=== PATIENT | female | born 1980 | race Caucasian/White ===

== ENCOUNTER 2019-12-29 18:16 | Emergency (ER) | payer BC, SELFPAY ==
--- NOTE | ~2019-12-29 | CT_ITS ---
CT soft tissue neck w con DATE: 12/29/2019 19:14 INDICATION: Sore throat, difficulty swallowing TECHNIQUE: Axial images and sagittal and coronal reconstructions through the neck following administr ation of 75 cc Omnipaque 350 contrast material Exam dose: 495.04 mGy-cm total exam DLP. COMPARISON: None FINDINGS: The parotid and submandibular glands are normal in appearance. The thyroid gland is unremarkable. No cervical mass lesion or lymphadenopathy. No superior mediastinal mass lesion or lymphadenopathy. Air column is patent. IMPRESSION: No cervical mass lesion or lymphadenopathy Reviewed, dictated and finalized at [facility]. Reviewed, dictated and finalized at [facility].
[2019-12-29 18:20] VITALS: BP 139/84; PULSE 103; RESP 18; TEMP 36.3; O2SAT 99
[2019-12-29 18:28] VITALS: BP 138/80; PULSE 172; RESP 17; O2SAT 98
--- NOTE | 2019-12-29 18:28 | ECG_ITS ---
Measurements Intervals [place] Rate: 169 P: PA: 0 QRS: 113 QRSD: 101 T: 62 QT: 289 QTc: 486 Interpretive Statements SINUS TACHYCARDIA BORDERLINE R WAVE PROGRESSION, ANTERIOR LEADS BASELINE ARTIFACT- I, III, AVR ABNORMAL ECG Electronically Signed On 12-30-2019 6:49:22 CDT by Rip Harvey D.O.
[2019-12-29 18:29] VITALS: PULSE 171
--- NOTE | 2019-12-29 18:37 | ED.GENADULT ---
HPI - General Adult General Chief complaint: Unspecified Stated complaint: amanda maza, being treated for strep Time Seen by Provider: 12/29/19 18:20 Source: patient History of Present Illness HPI narrative: Patient is a 39 y/o female complaining of left sided sore throat for 3 weeks. She states that sore throat is mild and there is no alleviating or exacerbating factor. She denies any fever. She has some chronic cough and running nose, which she attributed to allergies. She was seen at urgent care 1 week ago and strep test was negative. She received Rx for Amoxicillin 5 days from her PCP. Related Data Allergies Allergy/AdvReac Type Severity Reaction Status Date / Time No Known Allergies Allergy Unverified 04/09/18 10:50 Review of Systems Constitutional: Constitutional: Denies chills, Denies fever(s), Denies headache(s) and Denies weakness Eyes: Eyes: Denies blurry vision ENT: Denies headache(s), Denies neck pain and Reports sore throat Cardiovascular: Cardiovascular: Denies chest pain and Denies dyspnea Respiratory: Respiratory: Denies cough and Denies dyspnea Gastrointestinal: Gastrointestinal: Denies abdominal pain, Denies diarrhea, Denies nausea and Denies vomiting Genitourinary: Genitourinary: Denies hematuria and Denies dysuria Musculoskeletal: Musculoskeletal: Denies back pain and Denies neck pain Neurologic: Denies headache(s) and Denies weakness PMFSH Family History Family History Father Family history of malignant melanoma Other Cerebrovascular accident Diabetes mellitus Family history of allergic disorder Family history of cardiovascular disease Family history of kidney disease Hypertension Social History Social History Smoking status: Never smoker Alcohol intake: current Exam Const: General: no acute distress and well developed Orientation/consciousness: oriented to person, oriented to place, oriented to time and patient oriented x3 HENMT: Head: normocephalic Ears: external ears normal General nose exam: Normal external nose present Eyes: General: appearance normal, both eyes and all related structures Conjunctivae: conjunctivae normal Neck: Neck: normal visual inspection and full ROM Chest: Chest palpation & inspection: normal inspection of the chest and no tenderness Resp: Effort & Inspection: normal respiratory effort Auscultation: clear to auscultation bilaterally Cardio: Rate: tachycardic Rhythm: regular rhythm GI: GI Palp: No abdominal tenderness and Yes Soft to palpation Skin: General skin exam: normal color and turgor normal Neuro: General: oriented to person, oriented to place, oriented to time and patient oriented x3 Cognition (Neuro): normal cognition Extrem: General: normal to inspection, full ROM and no pedal edema Psych: Appearance: grossly normal Mental Status: mental status grossly normal Affect: normal affect Course Vital Signs Vital signs: Vital Signs Temperature 36.3 C L 12/29/19 18:20 Pulse Rate 103 H 12/29/19 18:20 Respiratory Rate 18 12/29/19 18:20 Blood Pressure 139/84 12/29/19 18:20 Pulse Oximetry 99 12/29/19 18:20 Temperature 36.7 C 12/29/19 22:00 Pulse Rate 99 12/29/19 22:00 Respiratory Rate 18 12/29/19 22:00 Blood Pressure 134/82 12/29/19 22:00 Pulse Oximetry 100 12/29/19 22:00 Medical Decision Making Vital Signs Vital Signs: Vital Signs Temperature 36.3 C L 12/29/19 18:20 Pulse Rate 103 H 12/29/19 18:20 Respiratory Rate 18 12/29/19 18:20 Blood Pressure 139/84 12/29/19 18:20 Pulse Oximetry 99 12/29/19 18:20 Temperature 36.7 C 12/29/19 22:00 Pulse Rate 99 12/29/19 22:00 Respiratory Rate 18 12/29/19 22:00 Blood Pressure 134/82 12/29/19 22:00 Pulse Oximetry 100 12/29/19 22:00 Lab Data Result diagrams: 12/29/19 18:35
[2019-12-29 18:41] VITALS: BP 121/83; PULSE 121; RESP 26; O2SAT 99
[2019-12-29 18:42] LABS: Basophils Absolute Auto 0.1 K/mm3 (0.0-0.1); Basophils Percent Auto 0.5 % (0.2-1.2); Eosinophils Percent Auto 0.1 % (0-4.4); Hematocrit 41.4 % (37.0-47.0); Hemoglobin 13.7 g/dL (12.0-15.0); Immature Granulocyte Absolute 0.07 K/mm3 (0.00-0.031); Immature Granulocyte Percent A 0.4 % (0-0.5); Lymphocytes Absolute Auto 2.58 K/mm3 (0.9-3.2); Lymphocytes Percent Auto 16.1 % (18.3-44.2); Mean Corpuscular HGB Conc 33.1 g/dl (32-36); Mean Corpuscular Hemoglobin 28.1 pg (26-34); Mean Corpuscular Volume 84.8 fl (80-100); Mean Platelet Volume 12.1 fl (7.4-10.4); Monocytes Absolute Auto 0.5 K/mm3 (0.1-0.6); Monocytes Percent Auto 2.9 % (2.6-8.5); Neutrophils Absolute Auto 12.9 K/mm3 (1.3-6.7); Platelet Count Result 268 k/mm3 (150-375); Red Blood Count 4.88 M/mm3 (4.2-5.4); Red Cell Distribution Width 14.7 % (11.5-14.5); White Blood Count 16.1 K/mm3 (4.5-10.0)
[2019-12-29 18:56] LABS: Anion Gap 12 mmol/L (8-16); Blood Urea Nitrogen 9 mg/dL (7-17); Calcium 9.9 mg/dL (8.4-10.2); Carbon Dioxide 26 mmol/L (22-30); Chloride 102 mmol/L (98-107); Estimated CRCL calculation 100 ml/min; Estimated Glomerular Filt Rate > 60; Glucose 140 mg/dL (65-105); Potassium 2.9 mmol/L (3.4-5.0); Sodium 140 mmol/L (137-145)
[2019-12-29 19:16] LABS: Monoscreen Negative (Negative); Negative Monotest Control Negative (Negative); Positive Monotest Control Positive (Positive)
[2019-12-29] MEDS: POTASSIUM CHLORIDE 20 MEQ TABLET 40 MEQ PO (19:35)
[2019-12-29 19:42] VITALS: BP 128/84; PULSE 110; RESP 20; O2SAT 100
--- NOTE | 2019-12-29 19:59 | ECG_ITS ---
Measurements Intervals [place] Rate: 141 P: 67 AL: 134 QRS: 119 QRSD: 100 T: 43 QT: 354 QTc: 544 Interpretive Statements SINUS TACHYCARDIA RIGHT AXIS DEVIATION BORDERLINE R WAVE PROGRESSION, ANTERIOR LEADS CONSIDER ANTEROLATERAL INFARCT, AGE INDETERMINATE BORDERLINE T WAVE ABNORMALITY- INFERIOR LEADS ABNORMAL ECG Electronically Signed On 12-30-2019 6:53:46 CDT by Rip Harvey D.O.
[2019-12-29 20:21] LABS: Add Urine Microscopic? YES; Appearance Urine Clear (Clear); Bilirubin Urine Negative (Negative); Blood Urine Negative (Negative); Color Urine Yellow (Yellow); Glucose Urine UA Negative (Negative); Ketones Urine Negative (Negative); Leukocyte Esterase Ur Negative LEU/UL (Negative); Nitrate Urine Negative (Negative); Protein Urine Negative (Negative); Squamous Epithelial Cell Urine Many /hpf (Few); Urobilinogen Urine Negative mg/dL (<2.0); WBC Urine 0-3 /hpf
[2019-12-29] MEDS: SODIUM CHLORIDE 0.9% IV 1,000 ML 999 ML IV CONT (20:23)
[2019-12-29 20:31] LABS: Specific Grav Ur 1.059 (1.001-1.035)
[2019-12-29] MEDS: LIDOCAINE HCL 2% VISC SOLN 15 ML UDC PO (21:07)
[2019-12-29] MEDS: KETOROLAC (*BKC) 60 MG/2 ML VIAL IM (21:07)
[2019-12-29 22:00] VITALS: BP 134/82; PULSE 99; RESP 18; TEMP 36.7; O2SAT 100
== END 2019-12-29 22:01 | disposition home or self-care (01) ==
PROVIDERS: Emergency Provider Emergency Medicine
DX: J02.9 Acute pharyngitis, unspecified (principal); E87.6 Hypokalemia; R94.31 Abnormal electrocardiogram [ECG] [EKG]; R00.0 Tachycardia, unspecified
CPT/HCPCS: 36415; 70491; 80048; 81001; 81025; 84443; 85025; 86308; 87081; 87880; 93005; 96360; 96372; 99284; A9270; J1885; J7030; Q9967

== ENCOUNTER 2020-07-05 19:21 | Observation (INO) | payer BC, SELFPAY ==
--- NOTE | ~2020-07-05 | CT_ITS ---
EXAMINATION: CT abdomen pelvis w con DATE: 07/05/2020 20:51 INDICATION: Right upper quadrant abdominal pain TECHNIQUE: Computed tomography (CT) of the abdomen and pelvis was performed with 100 cc Omnipaque 350 intravenous contrast. Automated exposure control and iterative reconstruction technique were employe d. Exam dose: 527.50 mGy-cm total exam DLP. COMPARISON: 10/15/2014 CT abdomen pelvis FINDINGS: The lung bases are clear. Normal heart size. No pericardial or pleural effusion. Approximately 3 x 10 mm calcification along the posterior aspect of the proximal gallbladder, likely due to cholelithiasis. Focal gallbladder wall thickening is considered less likely. Consider gallblad darcy ultrasound correlation. No gallbladder wall thickening or pericholecystic fluid or fat stranding is noted otherwise. There is no bile duct or pancreatic duct dilatation. No hepatic, splenic, pancreatic, and adrenal or renal space-occupying mass lesion is detected. No uri nary tract calculus or hydroureteronephrosis. 2.7 cm and 3.9 cm right ovarian cysts. The left ovary is unremarkable. Retroverted uterus; fluid is noted in the endometrial cavity, measuring up to 11.5 mm maximal AP dime nsion. Normal appendix. There are numerous diverticula of the sigmoid and descending and to a lesser extent transverse colon; no CT evidence of diverticulitis. No bowel obstruction, bowel wall thickening, pneu matosis or intraperitoneal free air is evident. Normal caliber of the abdominal aorta. No intraperitoneal or retroperitoneal or pelvic mass lesion or adenopathy or ascites is noted otherwise. Included skeletal structures are unremarkable. IMPRESSION: Gallstone versus less likely gallbladder wall calcification; consider gallbladder sonogr aphic correlation 2.7 cm and 3.9 cm right ovarian cysts Retroverted uterus with fluid in endometrial cavity measuring up to 11.5 mm AP dimension Diverticulosis of the colon; no CT evidence for diverticulitis Reviewed, dictated and finalized at [facility]. Reviewed, dictated and finalized at [facility]. IMPRESSION: Gallstone versus less likely gallbladder wall calcification; consi darcy gallbladder sonographic correlation 2.7 cm and 3.9 cm right ovarian cysts Retroverted uterus with fluid in endometrial cavity measuring up to 11.5 mm AP dimension Diverticulosis of the colon; no CT evidence for diverticulitis
--- NOTE | ~2020-07-05 | US_ITS ---
EXAMINATION: US abdomen limited DATE: 07/06/2020 11:35 INDICATION: Abdominal pain. TECHNIQUE: Multiple grayscale and Doppler ultrasound images of the abdomen were obtained. COMPARISON: CT abdomen and pelvis 07/05/2020 FINDINGS: The visualized portions of the head, body, and tail of the pancreas are normal. There is di ffuse hepatic steatosis. There is normal flow in main portal vein. The gallbladder is normal in size and contains gallstones. Gallbladder wall thickening is noted. There was a positive sonographic Fide y sign. The common duct is normal and measures 4 mm. IMPRESSION: 1. Acute cholecystitis. 2. Diffuse hepatic steatosis. Reviewed, dictated and finalized at [facility].
[2020-07-05 19:32] VITALS: BP 119/79; PULSE 125; RESP 20; TEMP 36.2; O2SAT 100
[2020-07-05 19:55] LABS: Basophils Absolute Auto 0.1 K/mm3 (0.0-0.1); Basophils Percent Auto 0.9 % (0.2-1.2); Eosinophils Absolute Auto 0.2 K/mm3 (0-0.3); Eosinophils Percent Auto 1.7 % (0-4.4); Hematocrit 40.2 % (37.0-47.0); Hemoglobin 13.1 g/dL (12.0-15.0); Immature Granulocyte Absolute 0.04 K/mm3 (0.00-0.031); Immature Granulocyte Percent A 0.5 % (0-0.5); Lymphocytes Absolute Auto 2.24 K/mm3 (0.9-3.2); Lymphocytes Percent Auto 26.1 % (18.3-44.2); Mean Corpuscular HGB Conc 32.6 g/dl (32-36); Mean Corpuscular Hemoglobin 27.7 pg (26-34); Mean Platelet Volume 11.3 fl (7.4-10.4); Monocytes Absolute Auto 0.8 K/mm3 (0.1-0.6); Monocytes Percent Auto 9.7 % (2.6-8.5); Neutrophils Absolute Auto 5.2 K/mm3 (1.3-6.7); Neutrophils Percent Auto 61.1 % (45.5-73.1); Platelet Count Result 215 k/mm3 (150-375); Red Blood Count 4.73 M/mm3 (4.2-5.4); Red Cell Distribution Width 14.6 % (11.5-14.5); White Blood Count 8.6 K/mm3 (4.5-10.0)
[2020-07-05 20:01] LABS: Add Urine Microscopic? YES; Appearance Urine Clear (Clear); Bilirubin Urine Negative (Negative); Blood Urine 1+ (Negative); Color Urine Yellow (Yellow); Glucose Urine UA Negative (Negative); Ketones Urine Negative (Negative); Leukocyte Esterase Ur Negative LEU/UL (Negative); Mucus Urine Rare /lpf; Nitrate Urine Negative (Negative); Protein Urine Negative (Negative); RBC Urine 0-2 /hpf (0-2); Specific Grav Ur 1.012 (1.001-1.035); Squamous Epithelial Cell Urine Few /hpf (Few); Urobilinogen Urine Negative mg/dL (<2.0); WBC Urine 0-3 /hpf
[2020-07-05] MEDS: SODIUM CHLORIDE 0.9% IV 1,000 ML 999 ML IV CONT (20:14)
[2020-07-05] MEDS: KETOROLAC 30 MG/ML VIAL (*BKC) IV PUSH (20:15)
[2020-07-05 20:18] LABS: Alanine Aminotransferase 29 U/L (4-35); Albumin Level 4.7 g/dL (3.5-5.1); Alkaline Phosphatase 64 U/L (38-126); Anion Gap 9 mmol/L (8-16); Aspartate Amino Transferase 37 U/L (14-36); Bilirubin,Total 0.2 mg/dL (0.2-1.3); Blood Urea Nitrogen 7 mg/dL (7-17); Calcium 9.3 mg/dL (8.4-10.2); Carbon Dioxide 25 mmol/L (22-30); Chloride 103 mmol/L (98-107); Estimated CRCL calculation 96 ml/min; Estimated Glomerular Filt Rate > 60; Glucose 134 mg/dL (65-105); Lipase 118 U/L (23-300); Potassium 2.8 mmol/L (3.4-5.0); Sodium 137 mmol/L (137-145)
--- NOTE | 2020-07-05 20:18 | ED.GENADULT ---
HPI - General Adult General Chief complaint: Abdominal Pain Stated complaint: i think im having a gall bladder attack Time Seen by Provider: 07/05/20 19:48 Source: patient History of Present Illness HPI narrative: Patient is a 39 y/o female complaining of upper abdominal pain starting 3 hours ago. She describes her pain as sharp with radiation to back. She has no vomiting or diarrhea. She rates her pain as 8/10. There is no alleviating or exacerbating factor. Related Data Allergies Allergy/AdvReac Type Severity Reaction Status Date / Time No Known Allergies Allergy Unverified 04/09/18 10:50 Review of Systems Constitutional: Constitutional: Denies chills, Denies fever(s), Denies headache(s) and Denies weakness Eyes: Eyes: Denies blurry vision ENT: Denies headache(s) and Denies neck pain Cardiovascular: Cardiovascular: Denies chest pain and Denies dyspnea Respiratory: Respiratory: Denies cough and Denies dyspnea Gastrointestinal: Gastrointestinal: Reports abdominal pain, Denies diarrhea, Denies nausea and Denies vomiting Genitourinary: Genitourinary: Denies hematuria and Denies dysuria Musculoskeletal: Musculoskeletal: Denies back pain and Denies neck pain Neurologic: Denies headache(s) and Denies weakness PMFSH Family History Family History Father Family history of malignant melanoma Other Cerebrovascular accident Diabetes mellitus Family history of allergic disorder Family history of cardiovascular disease Family history of kidney disease Hypertension Social History Social History Smoking status: Never smoker Alcohol intake: current Exam Const: General: no acute distress and well developed Orientation/consciousness: oriented to person, oriented to place, oriented to time and patient oriented x3 HENMT: Head: normocephalic Ears: external ears normal General nose exam: Normal external nose present Eyes: General: appearance normal, both eyes and all related structures Conjunctivae: conjunctivae normal Neck: Neck: normal visual inspection and full ROM Chest: Chest palpation & inspection: normal inspection of the chest and no tenderness Resp: Effort & Inspection: normal respiratory effort Auscultation: clear to auscultation bilaterally Cardio: Rate: tachycardic Rhythm: regular rhythm GI: GI Palp: Yes abdominal tenderness (right upper quadrant) and Yes Soft to palpation Skin: General skin exam: normal color and turgor normal Neuro: General: oriented to person, oriented to place, oriented to time and patient oriented x3 Cognition (Neuro): normal cognition Extrem: General: normal to inspection, full ROM and no pedal edema Psych: Appearance: grossly normal Mental Status: mental status grossly normal Affect: normal affect Course Consultations Consultation #1: Discussed with Dr. Nair, who recommends admitting to hospitalist, GB US in AM and further work up of tachycardia. Date: 07/05/20 Time: 22:06 Consultation #2: Discussed with Dr. Hart, who agrees to admit. She also recommends checking D Dimer. Date: 07/05/20 Time: 22:48 Vital Signs Vital signs: Vital Signs Temperature 36.2 C L 07/05/20 19:32 Pulse Rate 125 H 07/05/20 19:32 Respiratory Rate 20 07/05/20 19:32 Blood Pressure 119/79 07/05/20 19:32 Pulse Oximetry 100 07/05/20 19:32 Temperature 36.2 C L 07/05/20 19:32 Pulse Rate 143 H 07/05/20 23:11 Respiratory Rate 9 L 07/05/20 23:11 Blood Pressure 119/76 07/05/20 23:11 Pulse Oximetry 100 07/05/20 23:11 Medical Decision Making Vital Signs Vital Signs: Vital Signs Temperature 36.2 C L 07/05/20 19:32 Pulse Rate 125 H 07/05/20 19:32 Respiratory Rate 20 07/05/20 19:32 Blood Pressure 119/79 07/05/20 19:32 Pulse Oximetry 100 07/05/20 19:32 Temperature 36.2 C L 07/05/20 19:32 Pulse Rate 143 H 07/05/20 23:11 Respi
--- NOTE | 2020-07-05 20:54 | ECG_ITS ---
Measurements Intervals [place] Rate: 114 P: 56 CT: 156 QRS: 81 QRSD: 103 T: 42 QT: 345 QTc: 476 Interpretive Statements SINUS TACHYCARDIA BORDERLINE ST-T WAVE ABNORMALITY- INFERIOR LEADS ABNORMAL ECG Electronically Signed On 07-05-2020 22:03:02 CDT by Rip Harvey D.O.
[2020-07-05] MEDS: POTASSIUM CHLORIDE 20 MEQ TABLET 40 MEQ PO (21:10)
[2020-07-05 22:39] VITALS: BP 140/76; PULSE 140; RESP 12; O2SAT 100
[2020-07-05 22:53] VITALS: BP 115/78; PULSE 120; RESP 17; O2SAT 96
[2020-07-05] MEDS: LORazepam INJ (*CRX) 2 MG/ML VIAL 0.5 MG IV PUSH (22:57)
[2020-07-05 23:11] VITALS: BP 119/76; PULSE 143; RESP 9; O2SAT 100
[2020-07-05 23:28] LABS: Troponin I < 0.012 ng/mL (0.000-0.034)
[2020-07-06] VITALS (12 sets, daily range): BP systolic 107–138; BP diastolic 63–77; PULSE 70–129; RESP 16–20; TEMP 36.3–37.1; O2SAT 94–100; BMI 29.1; BMI 29.2
[2020-07-06] MEDS: SODIUM CHLORIDE 0.9% IV 1,000 ML 125 ML IV CONT (00:53)
--- NOTE | 2020-07-06 01:00 | ADMGEN ---
This patient, Almaz Bustamante, was admitted to [facility] Surg Room 312-01. Patient/family oriented to hospital policies and general routines including ID bracelet, bed and alarms, visiting hours, pain management, procedures, bathroom and other care routines, personal items, smoking policy, room service/diet, and visiting hours. Information on how to activate the Rapid Response Team has been discussed. Patient/Family are encouraged to report perceived risks to care and to ask questions if they do not understand what they are told or what they should do.
[2020-07-06 02:06] LABS: Troponin I < 0.012 ng/mL (0.000-0.034)
[2020-07-06 04:35] LABS: Anion Gap 5 mmol/L (8-16); Blood Urea Nitrogen 6 mg/dL (7-17); Calcium 8.5 mg/dL (8.4-10.2); Carbon Dioxide 25 mmol/L (22-30); Chloride 108 mmol/L (98-107); Estimated CRCL calculation 97 ml/min; Estimated Glomerular Filt Rate > 60; Glucose 103 mg/dL (65-105); Potassium 3.7 mmol/L (3.4-5.0); Sodium 138 mmol/L (137-145)
[2020-07-06 04:44] LABS: Troponin I < 0.012 ng/mL (0.000-0.034)
[2020-07-06] MEDS: PANTOPRAZOLE SODIUM IV 40 MG VIAL IV PUSH ×2 (08:39→20:22)
--- NOTE | 2020-07-06 09:56 | PM.CNGS ---
Assessment and Plan Assessment and plan (1) Upper abdominal pain: Code(s): R10.10 - Upper abdominal pain, unspecified Status: Acute Assessment and Plan: Patient presents with severe right upper quadrant abdominal pain. She has a longstanding history of having intermittent RUQ abdominal pain typically associated with meals. CT scan of the abdomen and pelvis was reviewed and discussed with the patient in detail. There is a 3 x 10 mm calcification along the posterior aspect of the proximal gallbladder, likely cholelithiasis rather than focal gallbladder wall thickening. No other abnormalities of the gallbladder concerning for acute cholecystitis was noted. She has had multiple different modalities for imaging of the gallbladder in the past that have not shown cholelithiasis. Her abdominal pain has improved, but she is still experiencing some abdominal pain and nausea this morning. We will get a right upper quadrant abdominal ultrasound this morning to further evaluate the gallbladder. This could be a source for her abdominal pain. WBC count and LFTs were normal. Further plan will depend on ultrasound results. Will keep the patient NPO for now and continue IV fluids and analgesics as needed. During my discussion with the patient, I did also describe details of a laparoscopic cholecystectomy, possible open, since this is a future possibility. Description of the procedure, risks, benefits, expected outcomes, and expected recovery were discussed with the patient in detail. In view of other potential causes of her abdominal pain, she follows a Lens Inserter at [facility] closely for her EOE. She has had multiple upper endoscopies, with the most recent in the last 6 months that was reportedly normal. I discussed with her that it is not certain if her gallbladder is causing her issues, although her presentation does seem to correlate with gallbladder disease. (2) Tachycardia: Code(s): R00.0 - Tachycardia, unspecified Status: Acute Assessment and Plan: Potentially related to the hypokalemia. Improving with treatment of the hypokalemia. She follows a [employer] as an outpatient. Management per Hospitalist. (3) Hypokalemia: Code(s): E87.6 - Hypokalemia Status: Acute Assessment and Plan: K 3.7 this morning. Continue to trend labs. I recommended follow-up with her PCP after discharge to monitor this and see if she needs supplementation. (4) Eosinophilic esophagitis: Code(s): K20.0 - Eosinophilic esophagitis Status: Acute Assessment and Plan: Management per Hospitalist. (5) Asthma: Code(s): J45.909 - Unspecified asthma, uncomplicated Status: Acute Additional Plan I have discussed the patient's case and plan of care with Dr. Nair. Thank you for allowing us to see the patient in consultation and we will continue to follow along with you. History of Present Illness Consult details Consult date: 07/06/20 Reason for consult: gallstones Requesting physician: Erin Hernandez MD Narrative: This is a 39-year-old female with a history of eosinophilic esophagitis, who presented to the emergency department with complaints of right upper quadrant abdominal pain. She reports a longstanding history of intermittent right upper quadrant abdominal pain for the past few years. She has had multiple ultrasounds and HIDA scans in the past. In review of her electronic medical record, she has had a HIDA scan in 2009 and 2016 with a normal gallbladder ejection fraction. The patient reports over the past few months her right upper quadrant abdominal pain has become more frequent and increasingly painful. This seems to have an onset following meals, specifically higher in fat. She is currently following a strict diet due to her EOE that has no restriction on fat. Yesterday afternoon, the patient ate ice cream and toppings off of 2 pieces of pizza. About 2 hours following the meal, she had an onset of right
[2020-07-06] MEDS: FLUTICASONE PROP 220 MCG (*SP) 12 GM INHALER 2 PUFF INHALATION ×2 (09:57→20:23)
--- NOTE | 2020-07-06 10:40 | PM.IMHP ---
H&P: HPI History of Present Illness Date/Time: 07/06/20 10:40 Chief Complaint: Abd pain Narrative: This is a 39 year old woman with history of eosinophilic esophagitis with recent esophageal stricture surgery at [facility] 12/2019, IBS, tachycardia, who presented to the ER with complaints of right upper quadrant pain with radiation to her back which began prior to arrival after eating some ice cream and pizza topping. She had associated nausea but denies any vomiting. She attempted to take some extra strength Tylenol without any improvement of her symptoms. She has a history of multiple gallbladder attacks over the last few years, but this episode was the worst and brought her to the ER for further evaluation and work up. She reports her mother, sisters and otherwise woman in her family have all had to have her gallbladder removed. She has recently made some adjustments to her diet due to her eosinophilic esophagitis and cut out egg, wheat, nut and soy and the food choices she has left is then more fatty in nature and cause this attack to come on. She denies any chest pain, shortness of breath, cough, fever, chills, vomiting, leg swelling, calf pain, urinary symptoms, lightheadedness, dizziness or any other symptoms at this time. Code Status- Full Code POA- , Oli Bustamante PCP- Dr. Belle Paige (#[phone]) Review of Systems Review of Systems: All systems reviewed & are unremarkable except as noted in HPI and below PMFSH Past Medical History Medical History Asthma Eosinophilic esophagitis Avoids egg, wheat, nut, and soy. IBS (irritable bowel syndrome) Seasonal allergies Surgical History Surgical History History of esophagogastroduodenoscopy (EGD) Multiple due to EOE with last one in fall requiring dilatation of esophageal stricture History of tubal ligation 2017 laparoscopic tubal ligation History of umbilical hernia repair 2013 open incarcerated umbilical hernia repair Family History Family History Father Family history of malignant melanoma Mother Gallbladder disease Sibling Gallbladder disease Other Gallbladder disease Other Cerebrovascular accident Diabetes mellitus Family history of allergic disorder Family history of cardiovascular disease Family history of kidney disease Hypertension Social History Social History Smoking status: Never smoker Second hand tobacco smoke exposure: No Alcohol intake: never Substance use: never Living arrangements: with family Additional living arrangements comments: The patient is with 3 children Occupation/Education: 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 Gender identity (if verbalized by the patient): Female Spiritual care concerns: No Meds Home Medications and Allergies Home Medications Medication Instructions Recorded Confirmed Type Allergy (diphenhydramine) 25 mg BYMOUTH Q6-12H PRN MDD 6 07/06/20 07/06/20 History albuterol sulfate 90 mcg INHALATION Q6-12H PRN 07/06/20 07/06/20 History alprazolam 0.5 mg PO TID PRN 07/06/20 07/06/20 History azelastine-fluticasone 137 spray INTRANASAL BID 07/06/20 07/06/20 History fluticasone propionate [Flovent See Rx Instructions .ROUTE .COMPLEX 07/06/20 07/06/20 History HFA] omeprazole 40 mg PO DAILY 07/06/20 07/06/20 History Allergies Allergy/AdvReac Type Severity Reaction Status Date / Time egg Allergy Mild Abdominal Verified 07/06/20 02:01 Pain wheat Allergy Mild Abdominal Verified 07/06/20 06:54 Pain nut - unspecified Allergy Abdominal Verified 07/06/20 06:56 Pain soy Allergy Abdominal Verified 07/06/20 06:55 Pain Vital Signs Vital Signs - 24 hr 07/05/20 19:32 07/05/20 22:3
[2020-07-06 11:37] LABS: Alanine Aminotransferase 21 U/L (4-35); Albumin Level 3.6 g/dL (3.5-5.1); Alkaline Phosphatase 41 U/L (38-126); Anion Gap 4 mmol/L (8-16); Aspartate Amino Transferase 29 U/L (14-36); Bilirubin,Total 0.4 mg/dL (0.2-1.3); Blood Urea Nitrogen 6 mg/dL (7-17); Calcium 8.6 mg/dL (8.4-10.2); Carbon Dioxide 23 mmol/L (22-30); Chloride 111 mmol/L (98-107); Estimated CRCL calculation 112 ml/min; Estimated Glomerular Filt Rate > 60; Glucose 86 mg/dL (65-105); Potassium 4.1 mmol/L (3.4-5.0); Sodium 138 mmol/L (137-145)
[2020-07-06 12:24] LABS: Magnesium 1.7 mg/dL (1.6-2.3)
[2020-07-06] MEDS: SODIUM CHLORIDE 0.9% IV 1,000 ML 90 ML IV CONT (12:35)
[2020-07-06] MEDS: cefoTEtan DISODIUM INJ 2 GM in DEXTROSE 5% IN WATER 50 ML IVPB (14:17)
[2020-07-06] MEDS: CALCIUM CARBONATE (TUMS) 500 MG (200 MG ELEMENTAL) PO (17:41)
--- NOTE | 2020-07-06 18:20 | WPDANESEPP ---
Anes - Eval Pre Procedure Procedure: lap cholecystectomy Date/Time: 07/06/20 18:20 Surgeon: ronen Pre Op Diagnosis: tachycardia, symptomatic cholelithiasis Patient Data Age: 39 Gender: F Height: 1.65 m Weight: 79.6 kg Last Vital Signs Temp 37.1 C 07/06/20 14:00 Pulse 102 H 07/06/20 16:00 Resp 18 07/06/20 14:00 BP 125/77 07/06/20 14:00 Pulse Ox 100 07/06/20 14:00 Allergies Allergy/AdvReac Type Severity Reaction Status Date / Time egg Allergy Mild Abdominal Verified 07/06/20 02:01 Pain wheat Allergy Mild Abdominal Verified 07/06/20 06:54 Pain nut - unspecified Allergy Abdominal Verified 07/06/20 06:56 Pain soy Allergy Abdominal Verified 07/06/20 06:55 Pain Home Medications Medication Instructions Recorded Confirmed Type Allergy (diphenhydramine) 25 mg BYMOUTH Q6-12H PRN MDD 6 07/06/20 07/06/20 History albuterol sulfate 90 mcg INHALATION Q6-12H PRN 07/06/20 07/06/20 History alprazolam 0.5 mg PO TID PRN 07/06/20 07/06/20 History azelastine-fluticasone 137 spray INTRANASAL BID 07/06/20 07/06/20 History fluticasone propionate [Flovent See Rx Instructions .ROUTE .COMPLEX 07/06/20 07/06/20 History HFA] omeprazole 40 mg PO DAILY 07/06/20 07/06/20 History Laboratory Tests 07/05/20 07/05/20 07/05/20 19:48 19:48 19:48 WBC 8.6 K/mm3 K/mm3 (4.5-10.0) RBC 4.73 M/mm3 M/mm3 (4.2-5.4) Hgb 13.1 g/dL g/dL (12.0-15.0) Hct 40.2 % % (37.0-47.0) MCV 85.0 fl fl (80-100) MCH 27.7 pg pg (26-34) MCHC 32.6 g/dl g/dl (32-36) RDW 14.6 % H % (11.5-14.5) Plt Count 215 k/mm3 k/mm3 (150-375) MPV 11.3 fl H fl (7.4-10.4) Immature Gran % (Auto) 0.5 % % (0-0.5) Neut % (Auto) 61.1 % % (45.5-73.1) Lymph % (Auto) 26.1 % % (18.3-44.2) Meagher % (Auto) 9.7 % H % (2.6-8.5) Eos % (Auto) 1.7 % % (0-4.4) Baso % (Auto) 0.9 % % (0.2-1.2) Lymph # (Auto) 2.24 K/mm3 K/mm3 (0.9-3.2) Meagher # (Auto) 0.8 K/mm3 H K/mm3 (0.1-0.6) Eos # (Auto) 0.2 K/mm3 K/mm3 (0-0.3) Baso # (Auto) 0.1 K/mm3 K/mm3 (0.0-0.1) Abs Immat Gran (auto) 0.04 K/mm3 H K/mm3 (0.00-0.031) Absolute Neuts (auto) 5.2 K/mm3 K/mm3 (1.3-6.7) Absolute Nucleated RBC 0.0 K/mm3 K/mm3 (0.0-0.012) Nucleated RBC % 0.0 % % (0.0-0.2) D-Dimer Sodium 137 mmol/L mmol/L (137-145) Potassium 2.8 mmol/L L* mmol/L (3.4-5.0) Chloride 103 mmol/L mmol/L (98-107) Carbon Dioxide 25 mmol/L mmol/L (22-30) Anion Gap 9 mmol/L mmol/L (8-16) BUN 7 mg/dL mg/dL (7-17) Creatinine 0.70 mg/dL mg/dL (0.7-1.0) Estim Creat Clear Calc 96 ml/min ml/min Estimated GFR > 60 (59 - ) Glucose 134 mg/dL H mg/dL (65-105) Calcium 9.3 mg/dL mg/dL (8.4-10.2) Magnesium Total Bilirubin 0.2 mg/dL mg/dL (0.2-1.3) AST 37 U/L H U/L (14-36) ALT 29 U/L U/L (4-35) Alkaline Phosphatase 64 U/L U/L (38-126) Troponin I Total Protein 8.0 g/dL g/dL (6.3-8.2) Albumin 4.7 g/dL g/dL (3.5-5.1) Lipase 118 U/L U/L (23-300) TSH Urine Color Yellow (Yellow) Urine Appearance Clear (Clear) Urine pH 5.0 (5.0-9.0) Ur Specific [place] 1.012 (1.001-1.035) Urine Protein Negative mg/dL mg/dL (Negative) Urine Glucose (UA) Negative mg/dL mg/dL (Negative) Urine Ketones Negative mg/dL mg/dL (Negative) Ur Blood (Man) 1+ H (Negative) Urine Nitrate Negative (Negative) Urine Bilirubin Negative (Negative) Urine Urobilinogen Negative mg/dL mg/dL (<2.0) Leukocyte Estera
[2020-07-06 21:56] LABS: Alanine Aminotransferase 22 U/L (4-35); Albumin Level 3.6 g/dL (3.5-5.1); Alkaline Phosphatase 40 U/L (38-126); Aspartate Amino Transferase 31 U/L (14-36); Bilirubin,Total 0.3 mg/dL (0.2-1.3)
[2020-07-07] VITALS (19 sets, daily range): BP systolic 104–137; BP diastolic 61–79; PULSE 62–109; RESP 10–18; TEMP 36.1–36.8; O2SAT 95–100
[2020-07-07] MEDS: cefoTEtan DISODIUM INJ 2 GM in DEXTROSE 5% IN WATER 50 ML IVPB (02:01)
[2020-07-07 05:55] LABS: Hematocrit 34.7 % (37.0-47.0); Hemoglobin 10.9 g/dL (12.0-15.0); Mean Corpuscular HGB Conc 31.4 g/dl (32-36); Mean Corpuscular Hemoglobin 26.9 pg (26-34); Mean Corpuscular Volume 85.7 fl (80-100); Mean Platelet Volume 11.7 fl (7.4-10.4); Platelet Count Result 169 k/mm3 (150-375); Red Blood Count 4.05 M/mm3 (4.2-5.4); White Blood Count 4.6 K/mm3 (4.5-10.0)
[2020-07-07 06:07] LABS: Alanine Aminotransferase 22 U/L (4-35); Albumin Level 3.6 g/dL (3.5-5.1); Alkaline Phosphatase 37 U/L (38-126); Anion Gap 5 mmol/L (8-16); Aspartate Amino Transferase 29 U/L (14-36); Bilirubin,Total 0.3 mg/dL (0.2-1.3); Blood Urea Nitrogen 4 mg/dL (7-17); Calcium 8.6 mg/dL (8.4-10.2); Carbon Dioxide 26 mmol/L (22-30); Chloride 107 mmol/L (98-107); Estimated CRCL calculation 97 ml/min; Estimated Glomerular Filt Rate > 60; Glucose 89 mg/dL (65-105); Lipase 60 U/L (23-300); Magnesium 1.6 mg/dL (1.6-2.3); Potassium 3.6 mmol/L (3.4-5.0); Sodium 138 mmol/L (137-145)
[2020-07-07] MEDS: LACTATED RINGERS 1,000 ML 75 ML IV CONT (06:22)
[2020-07-07] MEDS: CHLORHEXIDINE GLUCONATE 4% SOL 120 ML BTL 1 APPLIC TOPICAL (06:23)
--- NOTE | 2020-07-07 07:46 | P.HPUP_ITS ---
History and Physical Update Update Date/Time: 07/07/20 07:46 History and Physical has been reviewed, including an updated exam of the patient. There are changes in the patient's condition. since admission the patient's white count has gone down while on antibiotics. She also had an ult rasound which showed definite stones in the gallbladder and some thickening of the gallbladder wall consistent with possible acute cholecystitis. Since her symptoms correlated with this we have offered her surgical intervention and she would like to proceed. Risks, benefits, and alternativesA laparoscopic cholecystectomy with possible intraoperative cholangiogram, and possible open cholecystectomy have been discussed and questions answered. Patient agrees to proceed with procedure.
[2020-07-07] MEDS: PANTOPRAZOLE SODIUM IV 40 MG VIAL IV PUSH (08:05)
--- NOTE | 2020-07-07 08:12 | PC.NURSE ---
To OR per wood, IV #20 RT DION FERRARO. Report given to KATERIN Jansen by KATERIN Lezama on nights.
[2020-07-07] MEDS: LACTATED RINGERS 1,000 ML 30 ML IV CONT ×2 (08:25→11:10)
--- NOTE | 2020-07-07 08:38 | WPDANESEPPF ---
Anes - Initial Pre Proc Eval Procedure: Operation Date: 07/07/20 09:30 Proposed Procedures p Laparoscopic Cholecystectomy, Possible Intraoperative Cholangiograms - Camilo Nair MD Date/Time: 07/07/20 08:38 Surgeon: Jaren Magallanes PA-C Pre Op Diagnosis: tachycardia, symptomatic cholelithiasis Patient Data Age: 39 Gender: F Height: 5 ft 5 in Weight: 79.6 kg Last Vital Signs Temp 36.6 C 07/07/20 05:41 Pulse 77 07/07/20 05:41 Resp 18 07/07/20 05:41 BP 104/67 07/07/20 05:41 Pulse Ox 99 07/07/20 05:41 Allergies Allergy/AdvReac Type Severity Reaction Status Date / Time egg Allergy Mild Abdominal Verified 07/07/20 08:33 Pain wheat Allergy Mild Abdominal Verified 07/07/20 08:33 Pain nut - unspecified Allergy Abdominal Verified 07/07/20 08:33 Pain soy Allergy Abdominal Verified 07/07/20 08:33 Pain Home Medications Medication Instructions Recorded Confirmed Type Allergy (diphenhydramine) 25 mg BYMOUTH Q6-12H PRN MDD 6 07/06/20 07/06/20 History albuterol sulfate 90 mcg INHALATION Q6-12H PRN 07/06/20 07/06/20 History alprazolam 0.5 mg PO TID PRN 07/06/20 07/06/20 History azelastine-fluticasone 137 spray INTRANASAL BID 07/06/20 07/06/20 History fluticasone propionate [Flovent See Rx Instructions .ROUTE .COMPLEX 07/06/20 07/06/20 History HFA] omeprazole 40 mg PO DAILY 07/06/20 07/06/20 History Laboratory Tests 07/06/20 07/06/20 07/06/20 10:50 10:50 10:50 WBC RBC Hgb Hct MCV MCH MCHC RDW Plt Count MPV Sodium 138 mmol/L mmol/L (137-145) Potassium 4.1 mmol/L mmol/L (3.4-5.0) Chloride 111 mmol/L H mmol/L (98-107) Carbon Dioxide 23 mmol/L mmol/L (22-30) Anion Gap 4 mmol/L L mmol/L (8-16) BUN 6 mg/dL L mg/dL (7-17) Creatinine 0.60 mg/dL L mg/dL (0.7-1.0) Estim Creat Clear Calc 112 ml/min ml/min Estimated GFR > 60 (59 - ) Glucose 86 mg/dL mg/dL (65-105) Calcium 8.6 mg/dL mg/dL (8.4-10.2) Magnesium 1.7 mg/dL mg/dL (1.6-2.3) Total Bilirubin 0.4 mg/dL mg/dL 0.3 mg/dL mg/dL (0.2-1.3) (0.2-1.3) Direct Bilirubin 0.0 mg/dL mg/dL (0-0.3) AST 29 U/L U/L 31 U/L U/L (14-36) (14-36) ALT 21 U/L U/L 22 U/L U/L (4-35) (4-35) Alkaline Phosphatase 41 U/L U/L 40 U/L U/L (38-126) (38-126) Total Protein 7.0 g/dL g/dL 7.0 g/dL g/dL (6.3-8.2) (6.3-8.2) Albumin 3.6 g/dL g/dL 3.6 g/dL g/dL (3.5-5.1) (3.5-5.1) Lipase Blood Type Antibody Screen 07/07/20 07/07/20 07/07/20 05:30 05:30 05:30 WBC 4.6 K/mm3 K/mm3 (4.5-10.0) RBC 4.05 M/mm3 L M/mm3 (4.2-5.4) Hgb 10.9 g/dL L g/dL (12.0-15.0) Hct 34.7 % L % (37.0-47.0) MCV 85.7 fl fl (80-100) MCH 26.9 pg pg (26-34) MCHC 31.4 g/dl L g/dl (32-36) RDW 15.0 % H % (11.5-14.5) Plt Count 169 k/mm3 k/mm3 (150-375) MPV 11.7 fl H fl (7.4-10.4) Sodium 138 mmol/L mmol/L (137-145) Potassium 3.6 mmol/L mmol/L (3.4-5.0) Chloride 107 mmol/L mmol/L (98-107) Carbon Dioxide 26 mmol/L mmol/L (22-30) Anion Gap 5 mmol/L L mmol/L (8-16) BUN 4 mg/dL L mg/dL (7-17) Creatinine 0.70 mg/dL mg/dL (0.7-1.0) Estim Creat Clear Calc 97 ml/min ml/min Estimated GFR > 60 (59 - ) Glucose 89 mg/dL mg/dL (65-105) Calcium 8.6 mg/dL mg/dL (8.4-10.2) Magnesium 1.6 mg/dL mg/dL (1.6-2.3) Total Bilirubin 0.3 mg/dL mg/dL (0.2-1.3) Direct Bilirubin AST 29 U/L U/L (14-36) ALT 22 U/L U/L (4-35) Alkaline Michelle
[2020-07-07] MEDS: ACETAMINOPHEN 500 MG TABLET 1000 MG PO (08:47)
[2020-07-07] MEDS: KETOROLAC 15 MG/ML VIAL (*BKC) IV PUSH (08:47)
[2020-07-07] MEDS: ceFAZolin SODIUM 1 GM VIAL IV PUSH (09:58)
[2020-07-07] MEDS: BUPIVACAINE/EPINEPHRINE 0.5% 30 ML VIAL 20 ML INFILTRATE (10:07)
--- NOTE | 2020-07-07 11:33 | PM.PROC ---
Procedure Note - Detailed Date of procedure: 07/13/20 Pre-op diagnosis: tachycardia, symptomatic cholelithiasis Chronic Cholecystitis with Cholelithiasis Post-op diagnosis: other Procedure performed: Laparoscopic Cholecystectomy Description of procedure: Patient was seen preoperatively in the holding area and risks, benefits and alternatives confirmed. Patient was taken to the operating room and general anesthesia was induced. A time out was then preformed with the surgery team confirming patient and site of surgery. The abdomen was prepped and draped in the usual sterile fashion. Incision was made just below the umbilicus with an 11 blade knife. I placed 2 stay sutures of O- Vicryl on either side of the mid-line fascia beneath the umbilicus and was then able to slide in the Belle cannula through the fascial defect into the peritoneum. First under low flow and then under high flow the abdomen was insufflated with carbon dioxide never exceeding a pressure of 14. Three 5 mm trocars were then introduced under direct vision. The following trocars were introduced under direct vision: a 5 mm in the epigastrium and two 5 mm trocars along the right costal margin laterally in the subcostal area. There were no significant adhesions to the gallbladder. I then carefully used the L-shaped cautery and the [place] dissector to dissect out the triangle of Calot. I then was able to dissect out both the cystic duct and cystic artery and identify a window of safety. The gall bladder was grasped and the cystic duct and artery were dissected free and clipped with an 5 mm endo-clip it integration architect. The cystic duct and artery were clipped with use of 2 clips on the patient's side 1 on the gallbladder side utilizing a 5 mm endoclip-it integration architect. The cystic duct was then transected. The cystic artery was also transected at this point. The gall bladder was removed using electrocautery and then removed from the abdomen using a large 10 mm grasper via the umbilical incision. The trocars were removed visualizing hemostasis and the remaining gas evacuated. The large trocar site at the umbilicus was closed with use of the 2 stay sutures of 0 Vicryl mentioned above and also a figure of 8 O-Vicryl suture. The 2 stay sutures mentioned above on either side of the fascia were also tied together to help approximate this midline fascia. Further local anesthetic was placed into each incision for postop pain control. The skin incisions were closed with subcuticular suture of 4-0 Monocryl. Surgical glue then was applied to all the incisions. Patient tolerated the procedure well was taken to the recovery room in good condition. Anesthesia: TOOA Surgeon: Camilo Nair MD Radiation Control Specialist: Queenie CONKLIN, OR licensed physical therapy assistant Estimated blood loss (mL): 7 Drains: No Packing: No Pathology: yes (Gallbladder) Complications: No immediate complications Condition: stable Disposition: PACU Findings: there was some edema around the cystic duct and cystic artery at the lower end the gallbladder. Otherwise gallbladder appeared fairly normal. Upon extraction several small stones were palpable within the gallbladder itself.
[2020-07-07] MEDS: fentaNYL CITRATE INJ (*CRX) 100 MCG/2 ML VIAL 25 MCG IV PUSH ×3 (11:44→12:02)
[2020-07-07] MEDS: MORPHINE SULFATE (*CRX) 2 MG/ML INJ IV PUSH (13:38)
--- NOTE | 2020-07-07 16:39 | PM.IMPN ---
Progress Note: A&P Assessment and Plan (1) Acute cholecystitis: Code(s): K81.0 - Acute cholecystitis Status: Acute Assessment and Plan: Evident on RUQ US. RUQ pain associated with fatty meals. General Surgery following and patient underwent lap samira today. Still in significant pain and only tolerating CLD Monitor overnight Diet and pain management per General Surgery Monitor labs in AM (2) Upper abdominal pain: Code(s): R10.10 - Upper abdominal pain, unspecified Status: Acute Assessment and Plan: Likely 2/2 to above, although patient has significant history of chronic GI issues likely exacerbating pain. See above a/p Will need F/u with GI for eosinophilic esophagitis and PCP (3) Tachycardia: Code(s): R00.0 - Tachycardia, unspecified Status: Acute Assessment and Plan: Patient has had tachycardia and palpitations in the past. She recently saw a military education coordinator at [facility]. Filter Tender Jelly thought it could have been from her steroid inhalers. She had a Holter monitor placed and they found no acute abnormality for her symptoms and she is not currently on any medications for this. This appears to have resolved. Possibly related to acute cholecystitis as well. Will d/c winterizer Continue monitoring potassium levels; replace as needed (4) Hypokalemia: Code(s): E87.6 - Hypokalemia Status: Acute Assessment and Plan: Possibly related to modified diet due to her underlying GI issues. K 3.6 today Monitor tomorrow Replace as needed Possible discharge on low dose potassium supplementation at discharge Will need f/u with PCP (5) Eosinophilic esophagitis: Code(s): K20.0 - Eosinophilic esophagitis Status: Acute Assessment and Plan: Continue PPI. Subjective Date/time seen: 07/07/20 16:39 Interval history: Patient is a 39 yo F with history of eosinophilic esophagitis, IBS, and asthma who is seen in follow up for acute cholecystitis; s/p lap samira today per Dr. Nair. Patient does not feel well postoperatively, having 10/10 pain currently and associated nausea. She can only tolerate CLD at the moment. No BMs or passing gas yet. No other complaints. Denies f/c/s, dizziness, lightheadedness, cp/palpitations, sob/cough, dysuria, hematuria, cloudy urine, calf pain/swelling. Review of Systems Review of Systems: All systems reviewed & are unremarkable except as noted in HPI and below Exam Narrative: Exam Narrative: General: Patient resting supine in bed in no acute distress. HEENT: Normocephalic, EOMI, oral mucosa moist. Cardiovascular: Rate and rhythm are regular. No notable murmur, rub, or gallop. Tele shows NSR with tachycardia this afternoon s/p surgery; asymptomatic Respiratory: Lungs clear to auscultation anterolateral lung burton. Non-labored breathing. Abdomen: tender when auscultating, non-distended, bowel sounds absent Extremities: Peripheral pulses intact. No edema. NTTP b/l calves Neuro: No focal neurological deficits. Speech is clear. Objective Data Vital Signs Vital Signs: Last Vital Signs Temp 97.4 F L 07/07/20 14:15 Pulse 70 07/07/20 16:00 Resp 18 07/07/20 14:15 BP 105/66 07/07/20 14:15 Pulse Ox 100 07/07/20 14:15 Intake/Output Intake/Output: Intake & Output 07/04/20 07/05/20 07/06/20 07/07/20 23:59 23:59 23:59 23:59 Intake Total 1000 1540 150 Balance 1000 1540 150 Meds/Results Medications: Active Medications Generic Name Dose Route Start Last Admin Trade Name Freq PRN Reason Stop Dose Admin Acetaminophen 500 mg 07/07/20 12:30 Acetaminophen 500 Mg Tablet PO Q6H PRN Mild Pain (1-3) or Fever Hydrocodone Bitart/Acetaminophe
[2020-07-07] MEDS: ACETAMINOPHEN 500 MG TABLET PO (17:50)
[2020-07-07] MEDS: ONDANSETRON INJ 4 MG/2 ML VIAL IV PUSH ×2 (17:51→22:36)
[2020-07-07] MEDS: CALCIUM CARBONATE (TUMS) 500 MG (200 MG ELEMENTAL) PO (20:09)
[2020-07-07] MEDS: FLUTICASONE PROP 220 MCG (*SP) 12 GM INHALER 2 PUFF INHALATION (20:10)
[2020-07-07] MEDS: SENNA/DOCUSATE SODIUM TABLET 2 TAB PO (20:10)
[2020-07-08] MEDS: CALCIUM CARBONATE (TUMS) 500 MG (200 MG ELEMENTAL) PO (00:07)
[2020-07-08 03:56] VITALS: BP 106/65; PULSE 84; RESP 18; TEMP 36.7; O2SAT 100
[2020-07-08 06:21] LABS: Hematocrit 35.4 % (37.0-47.0); Hemoglobin 11.5 g/dL (12.0-15.0); Mean Corpuscular HGB Conc 32.5 g/dl (32-36); Mean Corpuscular Hemoglobin 27.9 pg (26-34); Mean Corpuscular Volume 85.9 fl (80-100); Mean Platelet Volume 11.7 fl (7.4-10.4); Platelet Count Result 163 k/mm3 (150-375); Red Blood Count 4.12 M/mm3 (4.2-5.4); Red Cell Distribution Width 15.1 % (11.5-14.5); White Blood Count 10.5 K/mm3 (4.5-10.0)
[2020-07-08 06:33] LABS: Alanine Aminotransferase 47 U/L (4-35); Albumin Level 3.9 g/dL (3.5-5.1); Alkaline Phosphatase 41 U/L (38-126); Anion Gap 6 mmol/L (8-16); Aspartate Amino Transferase 64 U/L (14-36); Bilirubin,Total 0.3 mg/dL (0.2-1.3); Blood Urea Nitrogen 7 mg/dL (7-17); Calcium 8.7 mg/dL (8.4-10.2); Carbon Dioxide 26 mmol/L (22-30); Chloride 106 mmol/L (98-107); Estimated CRCL calculation 97 ml/min; Estimated Glomerular Filt Rate > 60; Glucose 93 mg/dL (65-105); Magnesium 1.7 mg/dL (1.6-2.3); Potassium 3.6 mmol/L (3.4-5.0); Sodium 138 mmol/L (137-145)
[2020-07-08 08:00] VITALS: BP 118/71; PULSE 83; RESP 16; TEMP 36.6; O2SAT 100
[2020-07-08] MEDS: FLUTICASONE PROP 220 MCG (*SP) 12 GM INHALER 2 PUFF INHALATION (09:03)
[2020-07-08] MEDS: ENOXAPARIN 40 MG/0.4 ML SYRINGE SUB-Q (09:04)
--- NOTE | 2020-07-08 09:20 | WPDANESPN ---
Anes - Prog Note Post-Op Date/Time: 07/08/20 09:20 Cardiovascular status: normal Respiratory status: normal Airway patency: baseline Mental status: baseline Post-Op hydration status: normal Vital Signs: Last Vital Signs Temp 36.6 C 07/08/20 08:00 Pulse 83 07/08/20 08:00 Resp 16 07/08/20 08:00 BP 118/71 07/08/20 08:00 Pulse Ox 100 07/08/20 08:00 Pain Score (VAS): no c/o pain I/O: Intake & Output 07/07/20 07/08/20 07/08/20 23:59 07:59 15:59 Intake Total 250 700 Balance 250 700 Laboratory Tests 07/08/20 06:08 07/08/20 06:08 07/08/20 07/08/20 06:08 06:08 WBC 10.5 H RBC 4.12 L Hgb 11.5 L Hct 35.4 L MCV 85.9 MCH 27.9 MCHC 32.5 RDW 15.1 H Plt Count 163 MPV 11.7 H Sodium 138 Potassium 3.6 Chloride 106 Carbon Dioxide 26 Anion Gap 6 L BUN 7 Creatinine 0.70 Estim Creat Clear Calc 97 Estimated GFR > 60 Glucose 93 Calcium 8.7 Magnesium 1.7 Total Bilirubin 0.3 AST 64 H ALT 47 H Alkaline Phosphatase 41 Total Protein 7.0 Albumin 3.9 Post-procedural complaints: nausea Patient Feedback: Patient satisfied with anesthetic care.
--- NOTE | 2020-07-08 09:48 | WPDANESPN ---
Anes - Prog Note Post-Op Date/Time: 07/08/20 09:48 Cardiovascular status: normal Respiratory status: normal Airway patency: baseline Mental status: baseline Post-Op hydration status: normal Vital Signs: Last Vital Signs Temp 36.6 C 07/08/20 08:00 Pulse 83 07/08/20 08:00 Resp 16 07/08/20 08:00 BP 118/71 07/08/20 08:00 Pulse Ox 100 07/08/20 08:00 Pain Score (VAS): 0 I/O: Intake & Output 07/07/20 07/08/20 07/08/20 23:59 07:59 15:59 Intake Total 250 700 Balance 250 700 Laboratory Tests 07/08/20 06:08 07/08/20 06:08 07/08/20 07/08/20 06:08 06:08 WBC 10.5 H RBC 4.12 L Hgb 11.5 L Hct 35.4 L MCV 85.9 MCH 27.9 MCHC 32.5 RDW 15.1 H Plt Count 163 MPV 11.7 H Sodium 138 Potassium 3.6 Chloride 106 Carbon Dioxide 26 Anion Gap 6 L BUN 7 Creatinine 0.70 Estim Creat Clear Calc 97 Estimated GFR > 60 Glucose 93 Calcium 8.7 Magnesium 1.7 Total Bilirubin 0.3 AST 64 H ALT 47 H Alkaline Phosphatase 41 Total Protein 7.0 Albumin 3.9 Post-procedural complaints: nausea Patient Feedback: Patient satisfied with anesthetic care.
--- NOTE | 2020-07-08 10:38 | PM.DS ---
DS: Admitting Diagnosis Admitting Diagnosis Admitting Diagnosis: upper abdominal pain, tachycardia DS: Discharge Diagnosis Discharge Diagnosis (1) Chronic cholecystitis: Code(s): K81.1 - Chronic cholecystitis Status: Acute Assessment and Plan: Evident on RUQ US. RUQ pain associated with fatty meals. General Surgery following; POD 1 lap samira with edema noted on lower end of gallbladder. Overall pain has improved, but now having issues with Eosinophilic Esophagitis; this has improved since starting her home fluticasone and home omeprazole resumed by General Surgery. She is comfortable discharging today if dysphagia improves and tolerating more of a diet Diet and pain management per General Surgery Continue treatment for eosinophilic esophagitis Okay for discharge from medical standpoint if okay from General Surgery standpoint F/u with General Surgery and PCP after discharge (2) Eosinophilic esophagitis: Code(s): K20.0 - Eosinophilic esophagitis Status: Acute Assessment and Plan: Fluticasone resumed per General Surgery with improvement in symptoms. Carafate ordered as well but has yet to try this Continue home regimen of PPI and fluticasone Carafate PRN after discharge, but avoid if still n/v (3) Upper abdominal pain: Code(s): R10.10 - Upper abdominal pain, unspecified Status: Acute Assessment and Plan: Likely 2/2 to above, although patient has significant history of chronic GI issues likely exacerbating pain. See above a/p Will need F/u with GI for eosinophilic esophagitis and PCP (4) Tachycardia: Code(s): R00.0 - Tachycardia, unspecified Status: Acute Assessment and Plan: Patient has had tachycardia and palpitations in the past. She recently saw a pick up and delivery driver at [facility]. Painting Worker thought it could have been from her steroid inhalers. She had a Holter monitor placed and they found no acute abnormality for her symptoms and she is not currently on any medications for this. This appears to have resolved. Possibly related to acute cholecystitis as well. F/u with PCP/cardiology (5) Hypokalemia: Code(s): E87.6 - Hypokalemia Status: Acute Assessment and Plan: Possibly related to modified diet due to her underlying GI issues. K 3.6 today Will need f/u with PCP DS: Summary Hospital Course Reason for hospitalization: Cholecystitis Hospital Course: Date of arrival: 07/05/20 Date of discharge: 07/08/20 Patient is a 39 yo F with history of eosinophilic esophagitis, IBS, and asthma who presented to the ED on 07/05 with complaints of RUQ pain radiating to her back. While in the ED, Ct abd/pelvis revealed gallstone vs gallbladder wall calcification. General Surgery was consulted from the ED for suspected acute cholecystitis. Patient admitted to the hospitalist service under this setting for further management/treatment. Please see H&P for further details. After admission, RUQ US was obtained and revealed evidence of acute cholecystitis. She was place on empiric cefotetan. She was evaluated by General Surgery and underwent laparoscopic cholecystectomy without complications on 07/07. IV antibiotics were discontinued. Pathology revealed chronic cholecystitis with cholelithiasis, cholesterolosis, and cholesterol polyp. Patient was not tolerating diet well on day of surgery, thus was kept overnight for observation. The following day, discomfort from her eosinophilic esophagitis was her main complaint and she was restarted on her home regimen with improvement in her symptoms. Her diet was advanced and tolerated this well. Plan was for her to be discharged home with follow up with her PCP and General Surgery. Patient agre
[2020-07-08 12:00] VITALS: BP 108/70; PULSE 76; RESP 16; TEMP 36.5; O2SAT 100
[2020-07-08] MEDS: ACETAMINOPHEN 500 MG TABLET PO (12:31)
--- NOTE | 2020-07-08 14:05 | PM.PNGS ---
Progress Note: A&P Assessment and Plan (1) Acute cholecystitis: Code(s): K81.0 - Acute cholecystitis Status: Acute Assessment and Plan: POD#1 and patient doing well. Pain well-controlled currently. She reports having difficulty with swallowing pain pills or antibiotics. We switched her to hydrocodone/acetaminophen Elixir solution, which she has not yet tried. I will send a script of this to the pharmacy in case she has more severe post-op pain and requires more than Tylenol. She avoids all NSAIDs due to her EOE. Okay from a surgical standpoint to discharge the patient today once tolerating a low fat diet. Discussed d/c instructions with the patient. F/u in 2 weeks in the office with Dr. Nair. Continue low fat diet. (2) Eosinophilic esophagitis: Code(s): K20.0 - Eosinophilic esophagitis Status: Acute Assessment and Plan: Discussed with the Hospitalist regarding her current treatment of EOE and she has responded well to medications this afternoon. (3) Asthma: Code(s): J45.909 - Unspecified asthma, uncomplicated Status: Acute Additional Plan I have discussed the patient's case and plan of care with Dr. Nair. Subjective Subjective Date/Time Seen: 07/08/20 14:05 Patient reports: no new complaints, feels better, tolerating a regular diet, no flatus, no bowel movement and afebrile Interval history: Tolerating a diet. Pain is well controlled with Tylenol. She was having issues with swallowing earlier this morning associated with her esophagitis. She has now taken her medication and the sucralfate and now reports this has improved significantly. She was able to swallow Tylenol this afternoon without any issues and her pain was controlled with this so far. No nausea or vomiting. Tolerating activity. No other complaints. Review of Systems Review of Systems: All systems reviewed & are unremarkable except as noted in HPI and below Constitutional: Constitutional: Reports as per HPI, Reports no additional constitutional complaints, Denies chills and Denies fever(s) Cardiovascular: Cardiovascular: Reports no additional cardiovascular complaints, Denies chest pain, Denies leg edema and Denies dyspnea Respiratory: Respiratory: Reports no additional respiratory complaints, Denies cough and Denies dyspnea Gastrointestinal: Gastrointestinal: Reports as per HPI and Reports no additional gastrointestinal complaints Neurologic: Reports system reviewed and no additional complaints, except as documented, Denies Abnormal speech present and Denies focal weakness Exam Const: General: comfortable, no acute distress, alert and awake Orientation/consciousness: patient oriented x3 Resp: Effort & Inspection: normal respiratory effort Auscultation: clear to auscultation bilaterally Cardio: Rate: regular rate Rhythm: regular rhythm GI: Inspection: non-distended and incision (Abdominal incisions clean and dry, glue intact.) GI Palp: Yes Soft to palpation and Yes Tenderness to palpation present (GI) (appropriate incisional post-op tenderness) Auscultation: normal bowel sounds Skin: General skin exam: normal color Neuro: General: moves all extremities and no focal motor deficits Extrem: General: no clubbing, cyanosis or edema and no calf tenderness Psych: Mental Status: mental status grossly normal Insight: Good insight present (Psych) Judgement: Good judgement present (Psych) Objective Data Vital Signs Vital Signs: Vital Signs - 24 hr 07/07/20 14:15 07/07/20 16:00 07/07/20 18:14 Temperature 97.4 F L 97.0 F L Pulse Rate 79 70 93 Respiratory Rate 18 18 Blood Pressure 105/66 121/79 Pulse Oximetry 100 100 07/07/20 20:00 07/07/20 23:50 07/08/20 03:56 Temperature 97.9 F 98.3 F 98.0 F Pulse Rate 109 H 89 84 Respiratory Rate 18 18 18 Blood Pressure 126/74 122/66 106/65 Pulse Oximetry 100 100 100 07/08/20 08:00 07/08/20 12:00 Temperature 97.9 F 97.7 F Pulse Rate 83 76 Respiratory
== END 2020-07-08 14:50 | disposition home or self-care (01) ==
LOC: ANHED 20:23 → ANH3MEDSUR 23:35
PROVIDERS: Emergency Medicine; Physician Assistant; Surgery; Admitting Provider Internal Medicine; Emergency Provider Emergency Medicine; PCP Family Medicine; Visit Provider Physician Assistant
PROC: 0FT44ZZ Resection of Gallbladder, Percutaneous Endoscopic Approach (ICD-10-PCS; CPT 47562; principal; 2020-07-07 09:30)
DX: K80.10 Calculus of gallbladder with chronic cholecystitis without obstruction (principal); K20.0 Eosinophilic esophagitis; E87.6 Hypokalemia
CPT/HCPCS: 47562; 36415; 74177; 76705; 80048; 80053; 80076; 81001; 81025; 83690; 83735; 84443; 84484; 85025; 85027; 85380; 86850; 86900; 86901; 88304; 93005; 96361; 96365; 96374; 96375; 96376; 99285; A9270; C9113; G0378; J0131; J0690; J1100; J1650; J1885; J2060; J2250; J2270; J2405; J2704; J2710; J3010; J7030; J7120; Q9966; Q9967

== ENCOUNTER 2021-04-24 02:24 | Emergency (ER) | payer BC, SELFPAY ==
--- NOTE | ~2021-04-24 | CT_ITS ---
EXAMINATION: CT abdomen pelvis w con DATE: 04/24/2021 03:40 INDICATION: Worsening right upper quadrant pain TECHNIQUE: Computed tomography (CT) of the abdomen and pelvis was performed with 100 cc Omnipaque 350 intravenous contrast. The dose-length product was 411.49 mGy-cm. Automated exposure control and iter ative reconstruction technique were employed. COMPARISON: CT dated 07/05/2020. FINDINGS: Lung bases are unremarkable. Heart size normal. No pleural or pericardial effusion. Status post cholecystectomy. No significant vascular abnormality. No lymphadenopathy. The liver, spleen, pancreas, adrenal glands and kidneys are unremarkable. There is 4.3 cm right adnex al cyst, likely ovarian. There is a tubular structure adjacent to the ovarian cyst which could repres ent a borderline sized appendix or mildly prominent fallopian tube. There is no significant secondary findings to suggest appendicitis. Small amount of free fluid in the pelvis. Colonic diverticula with out evidence for diverticulitis. IMPRESSION: 1. Right ovarian cyst, measuring 4.3 cm. 2: 8 mm tubular structure adjacent to the right ovarian cyst. This could represent a mildly prominent right fallopian tube or appendix. No significant surrounding inflammatory changes are identified. Reviewed, dictated and finalized at location A. LITY SPECIALIST IMPRESSION: 1. Right ovarian cyst, measuring 4.3 cm. 2: 8 mm tubular structure adjacent to the right ovarian cyst. This could repres ent a mildly prominent right fallopian tube or appendix. No significant surroun ding inflammatory changes are identified.
--- NOTE | ~2021-04-24 | US_ITS ---
EXAMINATION: US pelvic complete DATE: 04/24/2021 07:31 INDICATION: Evaluate right ovarian cyst and possible appendicitis. Comparison:CT dated 04/24/2021 TECHNIQUE: Multiple transabdominal and endovaginal sonographic images of the pelvis performed. FINDINGS: The uterus measures 11.2 x 4.2 x 4.2 cm. The endometrial complex measures 7 mm. The right ovary measures 4.8 x 4.4 x 4.8 cm with a 3.6 x 3.5 x 4.1 cm cyst. The left ovary is not vis ualized. There are small follicles in each ovary. Normal doppler signal in both ovaries. The appendix is not visualized for evaluation due to overlying bowel gas. There is no free fluid in the pelvis. There are no abnormal masses seen on either side. IMPRESSION: 1. Right ovarian cyst measuring up to 4.1 cm. Appendix not adequately visualized. Reviewed, dictated and finalized at location A. RETE ANALYST IMPRESSION: 1. Right ovarian cyst measuring up to 4.1 cm. Appendix not adequately visualize d.
[2021-04-24 02:33] VITALS: BP 121/83; PULSE 97; RESP 17; TEMP 37; O2SAT 100
[2021-04-24 03:08] LABS: Basophils Absolute Auto 0.1 K/mm3 (0.0-0.1); Basophils Percent Auto 1.1 % (0.2-1.2); Eosinophils Absolute Auto 0.1 K/mm3 (0-0.3); Eosinophils Percent Auto 1.1 % (0-4.4); Hematocrit 40.5 % (37.0-47.0); Hemoglobin 13.6 g/dL (12.0-15.0); Immature Granulocyte Absolute 0.02 K/mm3 (0.00-0.031); Immature Granulocyte Percent A 0.3 % (0-0.5); Lymphocytes Absolute Auto 1.16 K/mm3 (0.9-3.2); Lymphocytes Percent Auto 15.9 % (18.3-44.2); Mean Corpuscular HGB Conc 33.6 g/dl (32-36); Mean Corpuscular Hemoglobin 28.6 pg (26-34); Mean Corpuscular Volume 85.1 fl (80-100); Mean Platelet Volume 11.7 fl (7.4-10.4); Monocytes Absolute Auto 0.6 K/mm3 (0.1-0.6); Monocytes Percent Auto 8.5 % (2.6-8.5); Neutrophils Absolute Auto 5.3 K/mm3 (1.3-6.7); Neutrophils Percent Auto 73.1 % (45.5-73.1); Platelet Count Result 152 k/mm3 (150-375); Red Blood Count 4.76 M/mm3 (4.2-5.4); Red Cell Distribution Width 13.9 % (11.5-14.5); White Blood Count 7.3 K/mm3 (4.5-10.0)
[2021-04-24 03:19] LABS: Alanine Aminotransferase 19 U/L (4-35); Albumin Level 4.9 g/dL (3.5-5.1); Alkaline Phosphatase 59 U/L (38-126); Anion Gap 8 mmol/L (8-16); Aspartate Amino Transferase 32 U/L (14-36); Bilirubin,Total 0.5 mg/dL (0.2-1.3); Blood Urea Nitrogen 7 mg/dL (7-17); Calcium 9.8 mg/dL (8.4-10.2); Carbon Dioxide 24 mmol/L (22-30); Chloride 104 mmol/L (98-107); Estimated Glomerular Filt Rate > 60; Glucose 111 mg/dL (65-110); Lipase 88 U/L (23-300); Sodium 136 mmol/L (137-145)
[2021-04-24 03:21] LABS: Lactic Acid Reflex 0.8 mmol/L (0.7-2.1)
--- NOTE | 2021-04-24 03:27 | ED.ABDPAIN ---
HPI - Abdominal Pain General Chief Complaint: Abdominal Pain <Chucho Sy MD - Last Filed: 04/24/21 07:16> Stated Complaint: abd pain, nausea <Chucho Sy MD - Last Filed: 04/24/21 07:16> Time Seen by Provider: 04/24/21 02:31 <Chucho Sy MD - Last Filed: 04/24/21 07:16> Source: patient and RN notes reviewed <Chucho Sy MD - Last Filed: 04/24/21 07:16> Mode of arrival: ambulatory <Chucho Sy MD - Last Filed: 04/24/21 07:16> Limitations: no limitations <Chucho Sy MD - Last Filed: 04/24/21 07:16> History of Present Illness HPI narrative: 40-year-old female presents to the emergency department for evaluation of worsening right upper quadrant pain. Patient does have a history of prior cholecystectomy on 07/08. Since that time patient has been worked up for worsening intermittent right upper quadrant pain patient also describe that the pain has spread to her lower abdomen as well. Patient is scheduled to have an outpatient ultrasound. Patient states that she has been taking her prescribed medications and that they are not helping. Patient states initially her pain was worsened with food but states that the pain is persistent at this point. <Chucho Sy MD - Last Filed: 04/24/21 07:16> Related Data Home Medications: Home Medications Medication Instructions Recorded Confirmed Allergy (diphenhydramine) 25 mg BYMOUTH Q6-12H PRN MDD 6 07/06/20 07/21/20 Flovent HFA See Rx Instructions .ROUTE .COMPLEX 07/06/20 07/21/20 albuterol sulfate 90 mcg INHALATION Q6-12H PRN 07/06/20 07/21/20 alprazolam 0.5 mg PO TID PRN 07/06/20 07/21/20 azelastine-fluticasone 137 spray INTRANASAL BID 07/06/20 07/21/20 omeprazole 40 mg PO DAILY 07/06/20 07/21/20 <Chucho Sy MD - Last Filed: 04/24/21 07:16> Allergies/Adverse Reactions: Allergies Allergy/AdvReac Type Severity Reaction Status Date / Time egg Allergy Mild Abdominal Verified 04/24/21 03:06 Pain wheat Allergy Mild Abdominal Verified 04/24/21 03:06 Pain nut - unspecified Allergy Abdominal Verified 04/24/21 03:06 Pain soy Allergy Abdominal Verified 04/24/21 03:06 Pain <Chucho Sy MD - Last Filed: 04/24/21 07:16> Review of Systems Review of Systems: CONSTITUTIONAL: Denies fever, chills, or sweats. EYES: Denies visual changes, redness, or discharge. CARDIOVASCULAR: Denies chest pain, palpitations, or edema. RESPIRATORY: Denies cough or dyspnea. GASTROINTESTINAL: Abdominal pain GENITOURINARY: Denies dysuria or hematuria. SKIN: Denies rash or itching. MUSCULOSKELETAL: Denies back pain, joint pain, or myalgia <Chucho Sy MD - Last Filed: 04/24/21 07:16> FORMERLY [facility], 1928–1983 Past Medical History Medical History: Medical History (Updated 04/24/21 @ 09:37 by Pillo Au MD) Anxiety (~04/24/21) Asthma Eosinophilic esophagitis Avoids egg, wheat, nut, and soy. IBS (irritable bowel syndrome) Seasonal allergies <Chucho Sy MD - Last Filed: 04/24/21 07:16> Surgical History Surgical History: Surgical History History of esophagogastroduodenoscopy (EGD) Multiple due to EOE with last one in fall requiring dilatation of esophageal stricture History of tubal ligation 2017 laparoscopic tubal ligation History of umbilical hernia repair 2014 open incarcerated umbilical hernia repair Hx laparoscopic cholecystectomy <Chucho Sy MD - Last Filed: 04/24/21 07:16> Family History Family History: Family History Father Family history of malignant melanoma Mother Gallbladder disease Sibling Gallbladder disease Other Gallbladder disease Other Cerebrovascular accident Diabetes mellitus Family history of allergic disorder Family history of cardiovascular disease Family history of kidney disease Hypertension
[2021-04-24 03:29] LABS: Add Urine Microscopic? YES; Appearance Urine Cloudy (Clear); Bilirubin Urine Negative (Negative); Blood Urine 3+ (Negative); Color Urine Red (Yellow); Glucose Urine UA Negative (Negative); Ketones Urine Negative (Negative); Leukocyte Esterase Ur Trace LEU/UL (Negative); Mucus Urine Rare /lpf; Nitrate Urine Negative (Negative); Protein Urine 2+ mg/dL (Negative); RBC Urine >75 /hpf (0-2); Specific Grav Ur 1.016 (1.001-1.035); Squamous Epithelial Cell Urine Moderate /hpf (Few); Urobilinogen Urine Negative mg/dL (<2.0)
[2021-04-24] MEDS: POTASSIUM CHLORIDE 20 MEQ PACKET (FOR LIQUID) 40 MEQ PO (03:40)
[2021-04-24] MEDS: ONDANSETRON INJ 4 MG/2 ML VIAL IV PUSH ×2 (03:40→08:39)
[2021-04-24 04:07] VITALS: BP 111/74; PULSE 90; RESP 16; O2SAT 100
[2021-04-24 05:58] VITALS: BP 123/70; PULSE 96; RESP 20; O2SAT 100
[2021-04-24 08:38] VITALS: BP 107/65; PULSE 84; RESP 18; O2SAT 100
[2021-04-24] MEDS: DICYCLOMINE HCL INJ 20 MG/2 ML VIAL IM (08:39)
== END 2021-04-24 09:52 | disposition home or self-care (01) ==
PROVIDERS: Emergency Medicine; Emergency Provider Emergency Medicine
DX: R10.11 Right upper quadrant pain (principal); J45.909 Unspecified asthma, uncomplicated; K58.9 Irritable bowel syndrome, unspecified; K20.0 Eosinophilic esophagitis; F41.9 Anxiety disorder, unspecified; N83.201 Unspecified ovarian cyst, right side
CPT/HCPCS: 36415; 74177; 76856; 80053; 81001; 83605; 83690; 85025; 96365; 96372; 96375; 96376; 99284; A9270; J0131; J0500; J2405; Q9967

== ENCOUNTER 2021-09-16 00:47 | Day surgery (SDC) | payer BC, OTHER, SELFPAY ==
[2021-09-10 12:24] VITALS: BMI 26.2
--- NOTE | 2021-09-10 12:33 | PC.NURSE ---
Report to the Outpatient Waiting Room, entrance under the green pavilion located off [facility], at time 0830 on date 09/16/21. OR Time: 1030. - You and your visitor will be asked a series of questions to screen for COVID 19 for your protection. - Only one visitor is allowed at this time. - The patient visitor is requested to leave or wait in car when not with patient. - A mask is required within the hospital. Patients may have clear liquids (water, carbonated beverages, clear teas, apple juice) until 3 hours prior to surgery with a maximum of 20 ounces. - No food from midnight until time of surgery Take the following medications with a SIP of water the morning of surgery: INHALER IF NEEDED Medications to discontinue per physician: VITAMINS/SUPPLEMENTS Date to take last dose: 09/12/21 Please no make-up, nail greenlandic, hairspray, perfume, deodorant, or body powder the day of surgery. No jewelry (including any body piercings) or valuables the day of surgery, leave them at home. Please take a shower or bath the night before, or the morning of, surgery with an antibacterial soap. Wear comfortable, loose fitting clothing. - Jewelry must be removed prior to entering the operating room. Rings and piercings that are not removed may be cut off. - The hospital will not accept responsibility for valuables. - Please leave all valuables, including medications, at home the day of surgery. If you are going home after surgery, a licensed furniture mover driver must drive you home. - NO public transportation without another adult. - We recommend that an adult stay with you for 24 hours following discharge. - We also recommend that you do not drive, make important decision, drink alcoholic beverages, or take any drugs that were not prescribed by your health care provider for at least 24 hours after your discharge time. Follow any additional instructions given to you from your surgeon. If you or anyone in your household have experienced Covid symptoms in the past week, please notify your surgeon or the nurse liaison at the phone number below for possible testing. Telephone instructions given to PT - BO DELACRUZ and asked if any additional questions and then verbalized understanding. Patient advised to call surgeon office or pre surgery nurse liaison [phone] if any additional questions.
--- NOTE | 2021-09-15 10:13 | PM.IMHP ---
H&P: HPI History of Present Illness Date/Time: 09/15/21 10:13 40-year-old female 2 para 2001 presents for evaluation and treatment of right adnexal pain and ovarian cyst. Her issues initiated in April when she was seen emergency room for pain and questionable appendicitis she did not have appendicitis or appendectomy and incidentally was found to have a 4.3cm right ovarian simple cyst this was repeated mid June and the cystogram to 5cm. She continued to have intermittent right lower quadrant pain and presents for evaluation as well as removal of cyst and/or ovary. Has had a tubal ligation in the past. Also history of umbilical hernia repair. Chief Complaint: Right lower quadrant pain Review of Systems Review of Systems: All systems reviewed & are unremarkable except as noted in HPI and below PMFSH Past Medical History Medical History Anxiety (~04/24/21) Asthma Eosinophilic esophagitis Avoids egg, wheat, nut, and soy. Heart murmur resolved IBS (irritable bowel syndrome) Seasonal allergies Surgical History Surgical History History of esophagogastroduodenoscopy (EGD) Multiple due to EOE with last one in fall requiring dilatation of esophageal stricture History of tubal ligation (09/08/16) 2017 laparoscopic tubal ligation History of umbilical hernia repair 2014 open incarcerated umbilical hernia repair Hx laparoscopic cholecystectomy Family History Family History Father Family history of malignant melanoma Mother Gallbladder disease Carcinoid tumor of abdomen Sibling Gallbladder disease Other Gallbladder disease Other Cerebrovascular accident Diabetes mellitus Family history of allergic disorder Family history of cardiovascular disease Family history of kidney disease Hypertension Social History Social History Smoking status: Never smoker Second hand tobacco smoke exposure: No Alcohol intake: never Substance use: never Substance use type: does not use Living arrangements: with family Additional living arrangements comments: The patient is with 3 children 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 Gender identity (if verbalized by the patient): Female Spiritual care concerns: No Meds Home Medications and Allergies Home Medications Medication Instructions Recorded Confirmed Type cetirizine 10 mg tablet (Zyrtec) 10 mg PO DAILY 09/10/21 09/10/21 History ferrous sulfate 325 mg (65 mg 325 mg PO DAILY 09/10/21 09/10/21 History iron) tablet (Iron (ferrous sulfate)) fluticasone propionate 50 1 spray intranasal DAILY 09/10/21 09/10/21 History mcg/actuation nasal spray,suspension levalbuterol tartrate 45 2 inh inhalation Q6H PRN 09/10/21 09/10/21 History mcg/actuation aerosol inhaler Bronchospasm omeprazole 20 mg capsule,delayed 20 mg PO DAILY 09/10/21 09/10/21 History release Allergies Allergy/AdvReac Type Severity Reaction Status Date / Time soy Allergy Abdominal Verified 09/10/21 12:23 Pain Exam Const: General: cooperative, healthy appearing and comfortable Resp: Effort & Inspection: normal respiratory effort Auscultation: clear to auscultation bilaterally Cardio: Rate: regular rate Rhythm: regular rhythm GI: Inspection: normal to inspection Percussion: Yes normal to percussion : External Female Exam: normal external appearance Speculum Exam - Vagina: normal appearance of the vagina Speculum Exam - Cervix: normal appearance of the cervix Bimanual exam- vagina & uterus: uterine shape normal Bimanual Exam- Adnexa, other: Adnexal mass present ( right adnexa 5-6 cm and tender.) Assessment and Plan Assessment and plan (1) Right lower quadrant pain:
[2021-09-16] VITALS (10 sets, daily range): BP systolic 94–127; BP diastolic 57–88; PULSE 72–118; RESP 12–20; TEMP 36.4–36.8; O2SAT 97–100
--- NOTE | 2021-09-16 07:14 | WPDHPUPDATE1 ---
History and Physical Update Update Date/Time: 09/16/21 07:14 History and Physical has been reviewed, including an updated exam of the patient. There are NO changes in the patient's condition. Risks, benefits, and alternatives have been discussed and questions answered. Patient agrees to proceed with procedure.
--- NOTE | 2021-09-16 09:09 | WPDANESEPPF ---
Anes - Initial Pre Proc Eval Procedure: Operation Date: 09/16/21 10:30 Proposed Procedures p Laparoscopic Right Ovarian Cystectomy - Ton Benedict MD Date/Time: 09/16/21 09:09 Surgeon: Ton Benedict MD Pre Op Diagnosis: Right Ovarian Cyst Patient Data Age: 40 Gender: F Height: 1.65 m Weight: 69.65 kg Last Vital Signs Temp 36.5 C 09/16/21 08:44 Pulse 118 H 09/16/21 08:44 Resp 16 09/16/21 08:44 BP 127/72 09/16/21 08:44 Pulse Ox 100 09/16/21 08:44 O2 Del Method Room Air 09/16/21 08:44 Allergies Allergy/AdvReac Type Severity Reaction Status Date / Time soy Allergy Intermediate Abdominal Verified 09/16/21 09:10 Pain Home Medications Medication Instructions Recorded Confirmed Type cetirizine 10 mg tablet (Zyrtec) 10 mg PO DAILY 09/10/21 09/10/21 History ferrous sulfate 325 mg (65 mg 325 mg PO DAILY 09/10/21 09/10/21 History iron) tablet (Iron (ferrous sulfate)) fluticasone propionate 50 1 spray intranasal DAILY 09/10/21 09/10/21 History mcg/actuation nasal spray,suspension levalbuterol tartrate 45 2 inh inhalation Q6H PRN 09/10/21 09/10/21 History mcg/actuation aerosol inhaler Bronchospasm omeprazole 20 mg capsule,delayed 20 mg PO DAILY 09/10/21 09/10/21 History release Patient hx anesthesia problems: none Family hx anesthesia problems: none Results Review: All pre-operative results and documents have been reviewed as part of the pre-operative evaluation. [facility] Past Medical History Medical History Anxiety (~04/24/21) Asthma Eosinophilic esophagitis Avoids egg, wheat, nut, and soy. Heart murmur resolved IBS (irritable bowel syndrome) Seasonal allergies Surgical History Surgical History History of esophagogastroduodenoscopy (EGD) Multiple due to EOE with last one in Fall of 2019 requiring dilatation of esophageal stricture History of tubal ligation (09/08/16) 2017 laparoscopic tubal ligation History of umbilical hernia repair 2013 open incarcerated umbilical hernia repair Hx laparoscopic cholecystectomy Family History Family History Father Family history of malignant melanoma Mother Gallbladder disease Carcinoid tumor of abdomen Sibling Gallbladder disease Other Gallbladder disease Other Cerebrovascular accident Diabetes mellitus Family history of allergic disorder Family history of cardiovascular disease Family history of kidney disease Hypertension Social History Social History Smoking status: Never smoker Second hand tobacco smoke exposure: No Alcohol intake: never Substance use: never Substance use type: does not use Living arrangements: with family Additional living arrangements comments: The patient is with 3 children 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 Informed Consent: The patient's anesthetic plan and its attendant risks and benefits were discussed with the patient/family/POA. Questions were solicited and answers provided to the satisfaction of the patient/family/POA.
[2021-09-16] MEDS: ACETAMINOPHEN 500 MG TABLET 1000 MG PO (09:13)
[2021-09-16] MEDS: LACTATED RINGERS 1,000 ML 30 ML IV CONT (09:30)
[2021-09-16] MEDS: KETOROLAC 15 MG/ML VIAL (*BKC) IV PUSH (09:32)
[2021-09-16] MEDS: SCOPOLAMINE 1.5 MG PATCH TRANSDERM (10:25)
--- NOTE | 2021-09-16 11:25 | W.PM.PROC2 ---
Procedure Note - Detailed Date of Procedure 09/16/21 Pre-op Diagnosis Right Ovarian Cyst Post-op Diagnosis Same Procedure Performed Laparoscopic right ovarian cystectomy Surgeon Ton Benedict MD Anesthesia General Findings Left ovary without abnormality uterus without abnormality right ovary with 4-5 cm clear fluid-filled cyst. Also of note there were no adhesions from her prior umbilical hernia repair and or cholecystectomy Description of Procedure Patient prepped and draped usual manner for this procedure. Left upper quadrant incision was made due to previous midline upper surgeries. Trocars placed under direct visualization. Gas was insufflated findings were noted as above specific no adhesions throughout. The Harmonic scalpel was used to incise over the cyst and the cyst wall was removed without difficulty. [place] was placed in this area empirically. Prior to that irrigation and suction revealed no bleeding. Gas was allowed to escape incisions approximated using 4-0 Monocryl in patient sent cover room in stable condition. Estimated Blood Loss 25 Drains No Packing No Pathology Yes Complications No immediate complications Condition Stable [facility] Billing Surgery - Charge Forward: Surgery Billing
--- NOTE | 2021-09-16 11:39 | SUR.PHASEI ---
1139- oral airway removed
[2021-09-16] MEDS: fentaNYL CITRATE INJ (*CRX) 100 MCG/2 ML VIAL 25 MCG IV PUSH ×2 (11:55→12:12)
== END 2021-09-16 13:45 | disposition home or self-care (01) ==
PROVIDERS: Visit Provider Obstetrics & Gynecology
PROC: (CPT 49320; principal; 2021-09-16 10:30)
DX: N83.201 Unspecified ovarian cyst, right side (principal); Z79.51 Long term (current) use of inhaled steroids
CPT/HCPCS: 58662; 88305; A9270; J0330; J1100; J1885; J2250; J2370; J2405; J2704; J3010; J7030; J7120